=== PATIENT | female | born 1995 | race African-American/Black ===

== ENCOUNTER 2019-03-03 20:32 | Emergency (ER) | payer BC ==
[2019-03-03] MEDS ORDERED: Dexamethasone 4 mg/ml Vial ONE ×2 (21:31→21:32)
[2019-03-03] MEDS ORDERED: diphenhydrAMINE 50 MG/ML VIAL ONE (21:31)
[2019-03-03] MEDS ORDERED: Famotidine/PF 20 mg/2ml Vial ONE (21:31)
== END 2019-03-03 22:38 | disposition home or self-care (01) ==
LOC: ERS 20:32
DX: T78.40XA Allergy, unspecified, initial encounter (principal); J45.909 Unspecified asthma, uncomplicated
CPT/HCPCS: 96360; 96374; 96375; J1100; J1200; S0028

== ENCOUNTER 2019-10-17 13:15 | Emergency (ER) | payer BC, OTHER ==
[2019-10-19 12:11] LABS: SARS-CoV-2 MS2 Positive; SARS-CoV-2 N Gene Negative; SARS-CoV-2 S Gene Negative; SARS-CoV-2 orf1ab Negative
== END 2019-10-17 13:45 | disposition home or self-care (01) ==
LOC: ERS 13:15
DX: Z20.828 Contact with and (suspected) exposure to other viral communicable diseases (principal); J45.909 Unspecified asthma, uncomplicated
CPT/HCPCS: 87635; 99283; U0003

== ENCOUNTER 2020-04-16 22:02 | Emergency (ER) | payer BC, OTHER ==
[2020-04-17] MEDS ORDERED: Dexamethasone 4 MG TAB ONE (01:40)
== END 2020-04-17 01:45 | disposition home or self-care (01) ==
LOC: ERS 22:02
DX: J02.9 Acute pharyngitis, unspecified (principal); J45.909 Unspecified asthma, uncomplicated
CPT/HCPCS: 87081; 87430; 99283; J8540

== ENCOUNTER 2020-05-06 16:54 | Emergency (ER) | payer BC, OTHER | END 2020-05-06 18:15 | disposition left against medical advice (07) | LOC: ERS 16:54 | DX: Z53.21 Procedure and treatment not carried out due to patient leaving prior to being seen by health care provider (principal) ==

== ENCOUNTER 2020-10-24 17:09 | Emergency (ER) | payer BC, OTHER ==
[2020-10-24] MEDS ORDERED: Acetaminophen 500 MG TAB ONE (17:45)
[2020-10-24] MEDS ORDERED: diphenhydrAMINE 50 MG/ML VIAL ONE (17:45)
[2020-10-24] MEDS ORDERED: Metoclopramide HCl 10 MG/2 ML VIAL ONE (17:45)
[2020-10-24 18:01] LABS: #Basophils 0.1 thou/uL (0.0-0.2); #Eosinphils 0.1 thou/uL (0.0-0.7); #Lymphocytes 2.5 thou/uL (1.20-3.40); #Monocytes 0.4 thou/uL (0.11-0.59); #Neutrophils 7.6 thou/uL (1.40-6.50); %Basophils 0.6 % (0.0-1.0); %Eosinophils 0.5 % (0.0-10.0); %Lymphocytes 23.2 % (21.0-51.0); %Neutrophils 71.7 % (42.0-75.0); Hemoglobin 11.7 g/dL (12.0-16.0); Mean Corpuscular HGB CONC 33.9 g/dL (32.0-36.0); Mean Corpuscular Hemoglobin 29.7 pg (27.0-31.0); Mean Corpuscular Volume 87.7 fL (78.0-98.0); Platelet Count 337 thou/uL (130-400); Red Blood Cell (RBC) Count 3.95 mill/uL (4.20-5.40); White Blood Cell (WBC) Count 10.6 thou/uL (4.8-10.8)
[2020-10-24 18:23] LABS: ALT (SGPT) 8 U/L (8-55); AST (SGOT) 11 U/L (5-34); Albumin 3.6 g/dL (3.5-5.0); Alkaline Phosphatase 60 U/L (40-110); Anion Gap 13 mmol/L (10-20); BUN (Urea Nitrogen) 6 mg/dL (7.0-18.7); Bilirubin, Total 0.2 mg/dL (0.2-1.2); Calc. Creatinine Clearance 0 mL/min (70-130); Calcium 8.8 mg/dL (7.8-10.44); Carbon Dioxide 22 mmol/L (22-29); Chloride 105 mmol/L (98-107); Globulin 2.9 g/dL (2.4-3.5); Glucose 97 mg/dL (70-105); Potassium 3.7 mmol/L (3.5-5.1); Protein, Total 6.5 g/dL (6.0-8.3); Sodium 136 mmol/L (136-145)
== END 2020-10-24 19:45 | disposition home or self-care (01) ==
LOC: ERS 17:09
DX: O99.891 Other specified diseases and conditions complicating pregnancy (principal); R42 Dizziness and giddiness; R11.0 Nausea; O99.511 Diseases of the respiratory system complicating pregnancy, first trimester; J45.909 Unspecified asthma, uncomplicated; Z3A.10 10 weeks gestation of pregnancy; R29.700 NIHSS score 0
CPT/HCPCS: 36415; 80053; 85025; 93005; 96374; 96375; J1200; J2765

== ENCOUNTER 2020-11-30 20:07 | Emergency (ER) | payer BC, OTHER | END 2020-11-30 21:40 | disposition left against medical advice (07) | LOC: ERS 20:07 | DX: Z53.21 Procedure and treatment not carried out due to patient leaving prior to being seen by health care provider (principal) ==

== ENCOUNTER 2021-08-27 22:06 | Emergency (ER) | payer BC, SELFPAY | END 2021-08-27 22:53 | disposition left against medical advice (07) | LOC: ERS 22:06 | DX: Z53.21 Procedure and treatment not carried out due to patient leaving prior to being seen by health care provider (principal) ==